=== PATIENT | female | born 1960 | race Caucasian/White ===

== ENCOUNTER → 2017-07-16 | Outpatient (CLI) | payer BC ==
[2017-07-16 13:08] LABS: BASO % 0.3 %; BASO ABS # 0.02 K/uL (0-0.2); COMPLETE YES; EOS % 1.8 %; IG% 0.3 %; LYMPH % 25.8 %; LYMPH ABS # 1.73 K/uL (1.2-3.4); MEAN CELL VOLUME 90.5 fL (80-100); MEAN CORPUSCULAR HEMOGLOBIN 30.5 pg (25-34); MEAN CORPUSCULAR HGB CONC 33.8 g/dl (32-36); MEAN PLATELET VOLUME 10.7 fL (7.4-10.4); MONO % 9.7 %; NEUT % 62.1 %; PLATELET COUNT 239 K/uL (130-400); RED BLOOD COUNT 4.42 M/uL (4.2-5.4); WHITE BLOOD COUNT 6.71 K/uL (4.8-10.8)
[2017-07-16 13:22] LABS: ALT/SGPT 115 U/L (12-78); AST/SGOT 80 U/L (15-37); BLOOD UREA NITROGEN 10 mg/dl (7-18); BUN/CREATININE RATIO 17.8 (10-20); CALCIUM 9.2 mg/dl (8.5-10.1); CARBON DIOXIDE 24 mmol/L (21-32); CHLORIDE 107 mmol/L (98-107); CREATININE 0.54 mg/dl (0.60-1.20); GLUCOSE 100 mg/dl (70-99); POTASSIUM 4.2 mmol/L (3.5-5.1); SODIUM 137 mmol/L (136-145)
[2017-07-16 13:25] LABS: ALB/GLOB RATIO 1.1 (0.9-2); ALKALINE PHOSPHATASE 67 U/L (45-117); CHOLESTEROL 207 mg/dl (0-200); CHOLESTEROL/HDL RATIO 4.2; HDL CHOLESTEROL 49 mg/dl; LDL CHOLESTEROL CALCULATED 135 mg/dl; TRIGLYCERIDES 113 mg/dl (0-150); VERY LOW DENSITY LIPOPROT CALC 23 mg/dl
== END | disposition home or self-care (01) ==
LOC: C.LABMFLN 08:36
PROVIDERS: ATTEND Family Medicine
DX: Z01.419 Encounter for gynecological examination (general) (routine) without abnormal findings (principal); I10 Essential (primary) hypertension

== ENCOUNTER → 2017-07-16 | Outpatient (CLI) | payer BC | END | disposition home or self-care (01) | LOC: C.PAPS 13:50 | PROVIDERS: ATTEND Family Medicine | DX: Z01.419 Encounter for gynecological examination (general) (routine) without abnormal findings (principal) ==

== ENCOUNTER → 2017-07-30 | Outpatient (CLI) | payer BC | END | disposition home or self-care (01) | LOC: C.LABMFLN 10:16 | PROVIDERS: ATTEND Family Medicine | DX: R74.8 Abnormal levels of other serum enzymes (principal) ==

== ENCOUNTER → 2017-08-05 | Outpatient (CLI) | payer BC | END | disposition home or self-care (01) | LOC: C.LABMFLN 10:24 | PROVIDERS: ATTEND Family Medicine | DX: R74.8 Abnormal levels of other serum enzymes (principal) ==

== ENCOUNTER → 2017-08-07 | Outpatient (CLI) | payer BC ==
--- NOTE | 2017-08-07 09:49 | DIAGNOSTIC IMAGING REPORT ---
ABDOMINAL ULTRASOUND, RIGHT UPPER QUADRANT HISTORY: Elevated liver enzymes. COMPARISON: None. FINDINGS: Exam is mildly compromised by suboptimal penetration. Hepatic echogenicity is normal. There is no biliary ductal dilatation. Common bile duct measures 4 mm in caliber. No gallstones are identified. There is no gallbladder wall thickening. The pancreatic body is normal. The head and tail are obscured. Several right renal lesions reflect cysts, measuring up to 4 cm. IMPRESSION: 1. No gallstones or biliary ductal dilatation. 2. Partially obscured pancreas. 3. Several right renal cysts. Electronically signed by: Adam Jackman M.D. 08/07/2017 9:48 AM Dictated Date/Time: 08/07/2017 9:46 AM
== END | disposition home or self-care (01) ==
LOC: C.ULTR 08:50
PROVIDERS: ATTEND Family Medicine
DX: R74.8 Abnormal levels of other serum enzymes (principal); N28.1 Cyst of kidney, acquired

== ENCOUNTER → 2017-08-13 | Outpatient (CLI) | payer BC ==
[2017-08-13 18:10] LABS: URINE APPEARANCE CLEAR (CLEAR); URINE BILIRUBIN NEG (NEG); URINE COLOR YELLOW; URINE EPITHELIAL CELL AUTO >30 /lpf (0-5); URINE NITRITE NEG (NEG); URINE PH 5.5 (4.5-7.5); URINE SPECIFIC GRAVITY 1.024 (1.000-1.030); UROBILINOGEN NEG (NEG)
[2017-08-13 18:11] LABS: MANUAL MICROSCOPIC REQUIRED? NO; REVIEW REQ? NO
== END | disposition home or self-care (01) ==
LOC: C.LABMFLN 14:13
PROVIDERS: ATTEND Internal Medicine Rheumatology
DX: R74.8 Abnormal levels of other serum enzymes (principal); R76.8 Other specified abnormal immunological findings in serum; M75.20 Bicipital tendinitis, unspecified shoulder

== ENCOUNTER → 2017-10-16 | Outpatient (CLI) | payer BC ==
[2017-10-16 18:10] LABS: THYROID STIMULATING HORMONE 1.16 uIu/ml (0.300-4.500)
== END | disposition home or self-care (01) ==
LOC: C.LABMFLN 15:19
PROVIDERS: ATTEND Family Medicine
DX: R22.1 Localized swelling, mass and lump, neck (principal)

== ENCOUNTER → 2018-02-04 | Outpatient (CLI) | payer BC ==
[2018-02-04 17:59] LABS: BASO % 0.6 %; BASO ABS # 0.04 K/uL (0-0.2); EOS % 2.2 %; EOS ABS # 0.14 K/uL (0-0.5); HEMOGLOBIN 13.2 g/dL (12.0-16.0); IG# 0.01 K/uL (0.00-0.02); LYMPH % 24.9 %; LYMPH ABS # 1.57 K/uL (1.2-3.4); MEAN CELL VOLUME 89.9 fL (80-100); MEAN CORPUSCULAR HEMOGLOBIN 30.4 pg (25-34); MEAN CORPUSCULAR HGB CONC 33.8 g/dl (32-36); MEAN PLATELET VOLUME 11.8 fL (7.4-10.4); MONO ABS # 0.57 K/uL (0.11-0.59); NEUT % 63.1 %; NEUT ABS # 3.98 K/uL (1.4-6.5); PLATELET COUNT 259 K/uL (130-400); RED CELL DISTRIBUTION WIDTH CV 13.7 % (11.5-14.5); RED CELL DISTRIBUTION WIDTH SD 45.5 fL (36.4-46.3); WHITE BLOOD COUNT 6.31 K/uL (4.8-10.8)
[2018-02-04 18:10] LABS: ALBUMIN 4.1 gm/dl (3.4-5.0); ALT/SGPT 102 U/L (12-78); AST/SGOT 78 U/L (15-37); BLOOD UREA NITROGEN 15 mg/dl (7-18); CALCIUM 9.5 mg/dl (8.5-10.1); CARBON DIOXIDE 27 mmol/L (21-32); CREATININE 0.69 mg/dl (0.60-1.20); GLUCOSE 93 mg/dl (70-99); LIPASE 124 U/L (73-393); POTASSIUM 4.2 mmol/L (3.5-5.1); SODIUM 139 mmol/L (136-145)
[2018-02-04 18:16] LABS: ALKALINE PHOSPHATASE 64 U/L (45-117)
== END | disposition home or self-care (01) ==
LOC: C.LABMFLN 11:08
PROVIDERS: ATTEND Family Medicine
DX: R10.13 Epigastric pain (principal)

== ENCOUNTER → 2018-02-15 | Outpatient (CLI) | payer BC ==
[~2018-02-15] MED LIST: OPTIRAY 320 IV PRN
--- NOTE | 2018-02-15 09:29 | DIAGNOSTIC IMAGING REPORT ---
CT ABD/PELVIS IV AND ORAL CONT CLINICAL HISTORY: EPIGASTRIC ABD PAIN, RLQ PAIN, ELEVATED LIVER ENZYME COMPARISON STUDY: Biliary ultrasound dated 08/07/2017 TECHNIQUE: Following the IV administration of 119 mL of Optiray-320, CT scan of the abdomen and pelvis was performed from the lung bases to the proximal femurs. Images are reviewed in the axial, sagittal, and coronal planes. IV contrast was administered without complication. A dose lowering technique was utilized adhering to the principles of ALARA. CT DOSE: 450.07 mGy.cm FINDINGS: Lower chest: The heart is normal in size and configuration, without pericardial effusion. The lung bases and pleural spaces are clear. Liver: There is a very subtle nodular contour of the liver. Early cirrhosis cannot be excluded. No focal hepatic masses are visualized. The portal vein appears patent. Gallbladder: Unremarkable. Spleen: Mildly enlarged measuring 14.4 cm Pancreas: There is a nonspecific uncinate processes lobulation. There is no pancreatic ductal dilatation. Adrenal glands: Unremarkable. Kidneys: There are multiple bilateral hypodense renal lesions. The largest in the right measures 32 mm. The largest on the left measures 18 mm. These lesions likely represent cysts. Bowel: There are no transition zones indicate bowel obstruction. There is no acute diverticulitis. The appendix is not visualized with certainty. There are no findings to indicate acute appendicitis. Peritoneum: There is no intraperitoneal free air or abdominal ascites. Vasculature: The abdominal aorta is normal in course and caliber. Adenopathy: Celiac lymph nodes are the upper limits of normal in size. Pelvic viscera: The bladder, and pelvic viscera are unremarkable. Skeletal structures: There is bilateral L5 spondylolysis IMPRESSION: 1. No evidence of bowel obstruction. No evidence of free air 2. No evidence of acute diverticulitis. No evidence of acute appendicitis 3. Very subtle nodular contour of the liver possibly indicating early cirrhosis. 4. Mild splenomegaly 5. Lobular contour of the uncinate process of the pancreas. No ductal dilatation. Electronically signed by: Robert Charles M.D. 02/15/2018 9:27 AM Dictated Date/Time: 02/15/2018 9:17 AM
== END | disposition home or self-care (01) ==
LOC: C.CTS 08:27
PROVIDERS: ATTEND Family Medicine
DX: R10.13 Epigastric pain (principal); R10.31 Right lower quadrant pain; R74.8 Abnormal levels of other serum enzymes

== ENCOUNTER 2018-03-18 08:28 | Day surgery (SDC) | payer BC ==
[~2018-03-18] VITALS: Ht 167.6 cm; Wt 83.5 kg
[2018-03-18] MEDS ORDERED: DEXL30CA5 PO (09:04)
[2018-03-18] MEDS ORDERED: LISI-729 PO (09:04)
[2018-03-18 09:05] VITALS: BP 144/74; PULSE 65; TEMP 36.6; O2SAT 97; Ht 167.6 cm; Wt 83.5 kg
[2018-03-18 09:33] LABS: PLATELET COUNT 195 K/uL (130-400)
--- NOTE | 2018-03-18 10:52 | Discharge Instructions ---
Discharge Instructions Procedure Procedure Date: March 18, 2018. Reason for visit: Abnormal Ast,Alt,Eval Autoimmune Hepatitis. Discharge Discharge Date: March 18, 2018. Discharge Diagnosis: Autoimmune hepatitis Instructions Activity Recommendations: 1 Day-May resume regular activity Return to School/Work: no limitations Recommended Home Diet: Resume Previous Diet Allergies Coded Allergies: No Known Allergies (Unverified , 03/18/18) MICHELLE Vyas Recommendations: Call your doctor if: * Temperature above 101 degrees * Pain not relieved by pain medicine ordered * There is increased drainage or redness from any incision * You have any unanswered questions or concerns. Your Doctors Instructions noted above were prepared by provider Robert Charles. Patient Signature Section: Patient Instructions Signature Page [place] Patient (or Guardian) Signature/Date: I have read and understand the instructions given to me by my caregivers. Caregiver/RN/Doctor Signature/Date: The above-named patient and/or guardian has received patient instructions on this date. + Original Patient Signature Page (only) stays with chart. Please make copy for patient.
[2018-03-18 10:59] VITALS: BP 146/81; PULSE 66; TEMP 36.5; O2SAT 97
[2018-03-18] MEDS ORDERED: ACETAMINOPHEN 500 MG TAB PO PRN (11:00)
--- NOTE | 2018-03-18 11:01 | DIAGNOSTIC IMAGING REPORT ---
ULTRASOUND-GUIDED HEPATIC CORE BIOPSY CLINICAL HISTORY: Autoimmune hepatitis COMPARISON STUDY: Ultrasound dated 08/07/2017 FINDINGS: A timeout was performed. The risks of the procedure were explained to the patient and informed consent was obtained. The patient prepped and draped in sterile fashion. The skin of the right lobe the liver was anesthetized with 1% lidocaine. Utilizing ultrasound guidance, 2 18-gauge (2 cm throw) core biopsy were obtained from the right lobe of the liver. There were no immediate complications. The patient will be observed in the healthcare technician unit prior to anticipated discharge later today. IMPRESSION: Successful 18-gauge ultrasound-guided core biopsy x2 of the right lobe of the liver Electronically signed by: Robert Charles M.D. 03/18/2018 11:00 AM Dictated Date/Time: 03/18/2018 10:58 AM
[2018-03-18 11:15] VITALS: BP 144/77; PULSE 64; O2SAT 98
[2018-03-18] MEDS ORDERED: ACETAMINOPHEN 500 MG TAB ONE (11:21)
[2018-03-18 11:30] VITALS: BP 146/86; PULSE 66; TEMP 36.9; O2SAT 97
[2018-03-18 12:00] VITALS: BP 155/76; PULSE 67; O2SAT 97
[2018-03-18 12:27] VITALS: BP 154/80; TEMP 36.5; O2SAT 96
== END 2018-03-18 13:05 | disposition home or self-care (01) ==
LOC: C.ACU 08:28
PROVIDERS: ATTEND Internal Medicine Gastroenterology
DX: K75.4 Autoimmune hepatitis (principal); R74.8 Abnormal levels of other serum enzymes